=== PATIENT | female | born 1970 | race Caucasian/White ===

== ENCOUNTER 2022-06-22 11:08 | Inpatient (IN) ==
[2022-06-22] MEDS ORDERED: ALBUTEROL 0.083% NEBU SOLN 3 ML VIAL NEB STA (11:56)
--- NOTE | 2022-06-22 12:20 | Emergency Department Note ---
Impression & Plan Asthma exacerbation, Hypoxia, Shortness of breath, Leukocytosis ED Provider Note NAME: LUIS KAMINSKI AGE: 51 SEX: F : 1970 ARRIVES VIA: Walk-In INFORMANT: Patient ED PROVIDER(S): Edil Fam DO CHIEF COMPLAINT: shortness of breath HPI: Patient is a 51-year-old female who presents to the ER for cough, congestion, runny nose and a sore throat. This all started this past Saturday. She notes it has been getting gradually worse. She saw her PCP 2 days ago and was placed on steroids and she has been using her inhaler. She notes that these are improving. No fevers. No belly pain, nausea, vomiting, or diarrhea. No dysuria, urgency, or frequency. No other exacerbating remitting factors. PAST MEDICAL HISTORY:See Below PAST SURGICAL HISTORY:See Below FAMILY HISTORY:See Below SOCIAL HISTORY:See Below HOME MEDICATIONS:See Below ALLERGIES:See Below VITALS:See Below PHYSICAL EXAMINATION: GENERAL: Sitting up in bed, alert, mild distress, tachypneic with conversation EYE EXAM: normal conjunctiva. PERRL and EOM's grossly intact. OROPHARYNX: mucous membranes are moist NECK: supple, no nuchal rigidity, no adenopathy, non-tender LUNGS: Diffuse wheezing bilaterally. Normal chest wall mechanics HEART: no murmurs, S1 normal and S2 normal ABDOMEN: abdomen soft, non-tender, normo-active bowel sounds, no masses, no rebound or guarding. UPPER EXTREMITIES: upper extremities are grossly normal. LOWER EXTREMITIES: No pitting edema. Calves are equal bilateral NEURO EXAM: Normal sensorium, cranial nerves II-XII grossly intact, normal speech, no gross weakness of arms, no gross weakness of legs. MEDICAL DECISION MAKING: Patient is a 51-year-old female who presents to the ER seen and evaluated by her PCP and placed on steroids and inhalers for shortness of breath which has been worsening. IV established blood pristine. Labs show mild leukocytosis of 1 4,000. No significant anemia. BMP with mild hypokalemia 3.4. LFTs bilirubin and lipase was unremarkable. Troponin was negative. Influenza COVID and RSV was negative. Chest x-ray was clean. Patient was given initially an hour-long neb treatment with some mild improvement as well as steroids. She was still slightly hypoxic without moving around and did become dyspneic. She then given an additional hour-long neb treatment due to slight tachypnea. Discussed with Dr. Mala Farrar in regards to further evaluation work-up and management. External records were reviewed. Triage Nursing notes reviewed. Limited review of prior medical records performed Vital Signs: reviewed and remarkable for hypoxia Differential diagnosis: Differential diagnoses includes but is not limited to pneumonia, bronchitis, COPD/Asthma exacerbation, pneumothorax, pulmonary embolism, congestive heart failure, acute coronary syndrome ER treatment provided: See below Diagnostics interpreted by me include EKG and cardiac monitoring as listed below: -Cardiac Monitoring: An order was placed for continuous cardiac monitoring. The monitor shows a rate of 90 with sinus rhythm. -ECG: Sinus rhythm rate of 90 Normal axis No PVCs QTc 450 T wave inversions in septal leads -Laboratory studies:Interpreted by me as stated above in MDM and shown below. Imaging studies: Xrays: As interpreted by me: Portable AP upright 1 view per my read shows no focal infiltrate CTs show: none Consultation(s): Discussed with Mala Farrar for further evaluation treatment and management Procedures:none Critical Care: I have personally spent 31 minutes of critical care time in the direct management of this patient. This includes bedside care, interpretation of diagnostic studies, and testing, discussion with consultants, patient, and family members, and other required patient management activities. This 31 minutes is in excess of all separately billable procedures. Past Med/Surg History Medical History (Updated 06/22/22 @ 14:48 by Edil Fam DO) Asthma Hx of endometriosis Hx pulmonary embolism 04/2016 Pollen allergies Seasonal allergies Surgical History History of anesthesia problem per pt blood pressure drops and has voiding issues Hx of hernia repair Hx of laparoscopy x2 Hx of tonsillectomy Hx of tubal ligation Family History Father Family history of diabetes mellitus Social History Smoking Status: Current every day smoker Cigarettes Per Day: 5; Second Hand Exposure: Yes ( SMOKES); Hx Alcohol Use: No Hx Substance Use: No Preferred Language: Montserratian Communication Ability: Effective Beliefs That Will Affect Care: None Current Living Situation: Family Feels Safe at Home: Yes Assistive Devices: Nebulizer Allergies Allergies Allergy/AdvReac Type Severity Reaction Status Date / Time hydromorphone [From Dilaudid] AdvReac Severe Vomiting Verified 06/22/22 14:36 morphine AdvReac NAUSEA AND Verified 12/12/18 09:43 VOMITING Home Meds Home Medications Medication Instructions Recorded Confirmed albuterol sulfate 2.5 mg/3 mL 2.5 mg inhalation QID PRN 11/27/18 06/22/22 (0.083 %) solution for nebulization SHORTNESS OF BREATH/WHEEZING albuterol sulfate 90 mcg/actuation 1 puff inhalation Q6H PRN 11/27/18 06/22/22 aerosol inhaler (ProAir HFA) Shortness Of Breath cetirizine 10 mg tablet (Zyrtec) 10 mg PO QAM 11/27/18 06/22/22 fluticasone 250 mcg-salmeterol 50 1 inh inhalation BID 11/27/18 06/22/22 mcg/dose blistr powdr for inhalation (Advair Diskus) montelukast 10 mg tablet 10 mg PO PM 11/27/18 06/22/22 (Singulair) omeprazole 40 mg capsule,delayed 40 mg PO DAILY 06/22/22 06/22/22 release Results & Data (ED) Vital Signs Vital Signs - 24 hr 06/22/22 11:12 06/22/22 11:44 06/22/22 12:29 Temperature 36.4 C L Temperature Source Temporal Artery Scan Pulse Rate 96 H Pulse Rate [Apical] 92 H Pulse Rhythm [Apical] Pulse Strength [Apical] Respiratory Rate 20 20 20 Respiratory Effort / Characteristics Non-Labored Spontaneous Spontaneous Respiratory Depth Normal Respiratory Pattern Regular Blood Pressure 149/80 H Blood Pressure [Left Arm] Blood Pressure Mean 103 Blood Pressure Mean [Left Arm] Pulse Oximetry 97 99 96 Oxygen Delivery Method Room Air Room Air Sepsis Recent Fever Within 48 Hours No Sepsis New/Unexplained Change in Mental Status No Sepsis Action Taken by Nursing No Action Required 06/22/22 12:52 06/22/22 13:02 06/22/22 14:03 Temperature Temperature Source Pulse Rate Pulse Rate [Apical] 98 H 94 H Pulse Rhythm [Apical] Regular Regular Pulse Strength [Apical] Normal Normal Respiratory Rate 18 20 22 Respiratory Effort / Characteristics Non-Labored Spontaneous Respiratory Depth Normal Respiratory Pattern Regular Blood Pressure Blood Pressure [Left Arm] 106/78 131/73 Blood Pressure Mean Blood Pressure Mean [Left Arm] 87 92 Pulse Oximetry 100 100 88 L Oxygen Delivery Method Nebulizer Room Air Sepsis Recent Fever Within 48 Hours Sepsis New/Unexplained Change in Mental Status Sepsis Action Taken by Nursing 06/22/22 14:33 Temperature Temperature Source Pulse Rate Pulse Rate [Apical] 93 H Pulse Rhythm [Apical] Pulse Strength [Apical] Respiratory Rate 18 Respiratory Effort / Characteristics Non-Labored Spontaneous Respiratory Depth Respiratory Pattern Blood Pressure Blood Pressure [Left Arm] Blood Pressure Mean Blood Pressure Mean [Left Arm] Pulse Oximetry 94 Oxygen Delivery Method Room Air Sepsis Recent Fever Within 48 Hours Sepsis New/Unexplained Change in Mental Status Sepsis Action Taken by Nursing Laboratory Data 06/22/22 11:40 06/22/22 11:40 Lab Results 06/22/22 06/22/22 06/22/22 Range/Units 11:40 11:40 11:40 WBC 14.44 H (4.8-10.8) K/ul RBC 4.93 (4.20-5.40) M/uL Hgb 14.6 (12.0-16.0) g/dl Hct 42.7 (37.0-47.0) % MCV 86.6 (80.0-100.0) fL MCH 29.6 (25.0-34.0) pg MCHC 34.2 (32.0-36.0) g/dL RDW Std Deviation 44.5 (36.4-46.3) fL RDW Coeff of Manish 14.0 (11.5-14.5) % Plt Count 227 (130-400) K/uL MPV 11.2 (9.4-12.4) fL Immature Gran % (Auto) 0.4 % Neut % (Auto) 72.7 % Lymph % (Auto) 20.3 % [place] % (Auto) 5.8 % Eos % (Auto) 0.6 % Baso % (Auto) 0.2 % Neut # (Auto) 10.49 H (1.40-6.50) K/uL Lymph # (Auto) 2.93 (1.2-3.4) K/uL [place] # (Auto) 0.84 H (0.11-0.59) K/uL Eos # (Auto) 0.09 (0-0.50) K/uL Baso # (Auto) 0.03 (0-0.2) K/uL Immature Gran # (Auto) 0.06 (0.01-0.20) K/uL Sodium 142 (136-145) mmol/L Potassium 3.4 L (3.5-5.1) mmol/L Chloride 107 (98-107) mmol/L Carbon Dioxide 27 (21-32) mmol/L Anion Gap 8 (3-11) BUN 14 (6-23) mg/dl Creatinine 0.83 (0.6-1.2) mg/dl Est Cr Clr Drug Dosing 77.1 ml/min Est GFR ( Amer) 96.0 ml/min Est GFR (Non-Af Amer) 82.8 ml/min BUN/Creatinine Ratio 16.9 (10-20) Glucose 79 (70-99(Fasting)) mg/dl Calcium 9.3 (8.5-10.1) mg/dl Total Bilirubin 0.4 (0.2-1.0) mg/dl AST 15 (13-39) U/L ALT 15 (7-52) U/L Alkaline Phosphatase 90 (34-104) U/L Troponin I High Sens 4.5 (0-14) pg/ml Total Protein 7.6 (6.0-8.3) gm/dl Albumin 4.3 (3.4-5.0) gm/dl Globulin 3.3 (2.5-4.0) gm/dl Albumin/Globulin Ratio 1.3 (0.9-2) Lipase 17 (11-82) U/L SARS-CoV-2 (PCR) NEGATIVE (Negative) Influenza Type A (PCR) Negative (Neg) Influenza Type B (PCR) Negative (Neg) RSV (RT-PCR) Negative (Neg) Administered Medications Discontinued Medications Albuterol (Albuterol 0.083% Nebu Soln 3 Ml Vial) 10 mg NEB NOW STA; Protocol Stop: 06/22/22 11:57 Last Admin: 06/22/22 12:27 Dose: 10 mg Documented By: ROBERT Albuterol (Albut/Ipratrop 3mg/0.5mg Neb 3 Ml Vial) 12 ml NEB ONE ONE; Protocol Stop: 06/22/22 14:06 Last Admin: 06/22/22 14:32 Dose: 12 ml Documented By: ROBERT Methylprednisolone (Methylprednisolone 40 Mg/Ml Vial) 40 mg IV NOW STA Stop: 06/22/22 11:57 Last Admin: 06/22/22 12:18 Dose: 40 mg Documented By: BEZ Imaging Data Radiologist's Impression: Chest X-Ray 06/22/22 11:28 XR chest 1V portable HISTORY: Chest pain, nonspecific COMPARISON: Chest 11/21/2018. FINDINGS: The lungs are clear. Cardiac silhouette is normal in size. No pleural effusions. No pneumothorax. Supraspinatus calcific tendinitis within the left shoulder. IMPRESSION: No acute process. ACT 112: Negative or not required by law. Electronically signed by: Jesse Franco M.D. 06/22/2022 12:41 PM Discharge Plan Visit Data Chief Complaint: Cough Stated Complaint: CHEST BURNING ED Provider: Edil Fam Discharge Problem: Asthma exacerbation, Hypoxia, Shortness of breath, Leukocytosis Forms Stand Alone Forms: My [employer] Prescriptions Prescriptions: No Action fluticasone propion-salmeterol [Advair Diskus] 250-50 mcg/dose Blister With Device 1 inh INHALATION BID Rx Instructions: HAS BEEN TEMPORIARLY UPPED TO 2 PUFFS D/T WEATHER; NORMAL DOSE 1 PUFF albuterol sulfate 2.5 mg /3 mL (0.083 %) Solution For Nebulization 2.5 mg INHALATION QID PRN (Reason: SHORTNESS OF BREATH/WHEEZING) cetirizine [Zyrtec] 10 mg Tablet 10 mg PO QAM montelukast [Singulair] 10 mg Tablet 10 mg PO PM albuterol sulfate [ProAir HFA] 90 mcg/actuation Hfa Aerosol Inhaler 1 puff INHALATION Q6H PRN (Reason: Shortness Of Breath) omeprazole 40 mg Capsule,Delayed Release(Dr/Ec) 40 mg PO DAILY Referrals Referrals: PCP,NO [Primary Care Provider] -
[2022-06-22 12:28] LABS: Albumin Globulin Ratio 1.3 (0.9-2); Albumin Level 4.3 gm/dl (3.4-5.0); BUN Creatinine Ratio 16.9 (10-20); Bilirubin,Total 0.4 mg/dl (0.2-1.0); Calcium 9.3 mg/dl (8.5-10.1); Creatinine Clr Calc Pharmacy 77.1 ml/min; Est GFR (Non-African American) 82.8 ml/min; Globulin 3.3 gm/dl (2.5-4.0); Potassium 3.4 mmol/L (3.5-5.1); Total Protein 7.6 gm/dl (6.0-8.3)
[2022-06-22 12:34] LABS: Basophils # (auto) 0.03 K/uL (0-0.2); Basophils % (auto) 0.2 %; Eosinophils # (auto) 0.09 K/uL (0-0.50); Eosinophils % (auto) 0.6 %; Hematocrit (blood only) 42.7 % (37.0-47.0); Hemoglobin 14.6 g/dl (12.0-16.0); Immature Granulocytes # (auto) 0.06 K/uL (0.01-0.20); Immature Granulocytes % (auto) 0.4 %; Lymphocytes # (auto) 2.93 K/uL (1.2-3.4); Lymphocytes % (auto) 20.3 %; Mean Corpuscular Hemoglobin 29.6 pg (25.0-34.0); Mean Corpuscular Hgb Conc 34.2 g/dL (32.0-36.0); Mean Corpuscular Volume 86.6 fL (80.0-100.0); Mean Platelet Volume 11.2 fL (9.4-12.4); Monocytes # (auto) 0.84 K/uL (0.11-0.59); Monocytes % (auto) 5.8 %; Neutrophils # (auto) 10.49 K/uL (1.40-6.50); Neutrophils % (auto) 72.7 %; Platelet Count 227 K/uL (130-400); RDW Standard Deviation 44.5 fL (36.4-46.3); Red Blood Count 4.93 M/uL (4.20-5.40); Troponin I High Sensitivity 4.5 pg/ml (0-14); White Blood Count 14.44 K/ul (4.8-10.8)
[2022-06-22 12:37] LABS: Influenza A virus by PCR Negative (Neg); Influenza B virus by PCR Negative (Neg); RSV by PCR Negative (Neg); SARS CoV2 RNA(COVID-19) Ceph NEGATIVE (Negative)
--- NOTE | 2022-06-22 12:42 | XRay Report ---
XR chest 1V portable HISTORY: Chest pain, nonspecific COMPARISON: Chest 11/21/2018. FINDINGS: The lungs are clear. Cardiac silhouette is normal in size. No pleural effusions. No pneumot horax. Supraspinatus calcific tendinitis within the left shoulder. IMPRESSION: No acute process. ACT 112: Negative or not required by law. Electronically signed by: Jesse Franco M.D. 06/22/2022 12:41 PM
[2022-06-22] MEDS ORDERED: ALBUT/IPRATROP 3MG/0.5MG NEB 3 ML VIAL NEB ONE (14:05)
--- NOTE | 2022-06-22 14:43 | History & Physical Report ---
Date of Service June 22, 2022 Assessment & Plan (1) Asthma exacerbation: Plan: h/o asthma and active smoking, presents with exacerbation possibly related to a virus. Nasal swab for flu/covid are clear. CXR is clear. She became hypoxic with ambulation in the ER after initial treatment. Will continue steroids and albuterol via nebulizer during admission. Cont Advair and Singulair per home regimen. (2) Hypoxia: Plan: Hypoxia with walking 2/2 #1. May consider 2 step prior to discharge. (3) Seasonal allergies: Plan: Chronic, stable. Cont Zyrtec per home regimen (4) Hx pulmonary embolism: Plan: h/o PE in 2017-no clear etiology per patient. DVT prophylaxis with Lovenox ordered. (5) Tobacco use: Plan: Smoking cessation advised and she was counseled on this. Verbalized underst anding-contemplative phase. DVT proph: Lovenox Full Code Dispo-to telemetry. Patient states that she would like to be discharged tomorrow so she may attend her granddaughter's gymnastics event. AT least 75 minutes was spent reviewing outpatient records, discussing case with staff, reviewing diagnostics, examining patient and interviewing she and her and reviewing and documenting plan with patient. DO [facility] History of Present Illness Chief Complaint: cough Primary Care Provider: NO PCP 51 yo F with h/o asthma presents with an acute exacerbation. She reports symptoms of cough and SOB starting on Saturday this week. She saw her PCP on and was prescribed prednisone and a zpack but her breathing and cough was worse despite therapy. In the ER today she was not moving air well, per ER doctor. She has received solumedrol 40mg IV and two sequential 1hr nebulizer treatments. She was counseled extensively on the importance of smoking cessation and states that she is now down to 5 cigarettes/day. She denies any fevers or chills. She has been eating but hasn't had anything to eat yet today. 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 She reports being hospitalized for asthma once many years ago but has never been intubated for this. Allergies Allergy/AdvReac Type Severity Reaction Status Date / Time hydromorphone [From Dilaudid] AdvReac Severe Vomiting Verified 06/22/22 14:36 morphine AdvReac NAUSEA AND Verified 12/12/18 09:43 VOMITING Home Medications Medication Instructions Recorded Confirmed Type albuterol sulfate 2.5 mg/3 mL 2.5 mg inhalation QID PRN 11/27/18 06/22/22 History (0.083 %) solution for nebulization SHORTNESS OF BREATH/WHEEZING albuterol sulfate 90 mcg/actuation 1 puff inhalation Q6H PRN 11/27/18 06/22/22 History aerosol inhaler (ProAir HFA) Shortness Of Breath cetirizine 10 mg tablet (Zyrtec) 10 mg PO QAM 11/27/18 06/22/22 History fluticasone 250 mcg-salmeterol 50 1 inh inhalation BID 11/27/18 06/22/22 History mcg/dose blistr powdr for inhalation (Advair Diskus) montelukast 10 mg tablet 10 mg PO PM 11/27/18 06/22/22 History (Singulair) omeprazole 40 mg capsule,delayed 40 mg PO DAILY 06/22/22 06/22/22 History release Past Med/Surg History Medical History Asthma Hx of endometriosis Hx pulmonary embolism 04/2016 Pollen allergies Seasonal allergies Surgical History History of anesthesia problem per pt blood pressure drops and has voiding issues Hx of hernia repair Hx of laparoscopy x2 Hx of tonsillectomy Hx of tubal ligation Family History Father Family history of diabetes mellitus Social History Smoking Status: Current every day smoker Cigarettes Per Day: 5; Second Hand Exposure: Yes ( SMOKES); Hx Alcohol Use: No Hx Substance Use: No Preferred Language: Italian Communication Ability: Effective Beliefs That Will Affect Care: None Current Living Situation: Family Feels Safe at Home: Yes Assistive Devices: Nebulizer Review of Systems Review of Systems: All systems were reviewed and negative except as indicated on HPI above. Physical Exam Physical Exam: CONSTITUTIONAL: WNWD, vitals as above, generally well-appearing, NAD EYES: EOMI bilaterally, PERRL, normal conjunctivae, no scleral icterus ENT: external ear and nose normal, oal mucosa moist. NECK: trachea midline RESPIRATORY: clear to auscultation bilaterally, no crackles, rales or wheezes, normal respiratory effort CARDIOVASCULAR: regular rate and rhythm, S1 and 2 heard without murmurs, gallops or rubs, no JVD, no peripheral edema CHEST: inspection of chest was normal GASTROINTESTINAL: soft, nontender, ND, no guarding MUSCULOSKELETAL: strength 5/5 throughout, head is normocephalic and atraumatic, neck supple, normal palpation of chest wall without tenderness SKIN: warm and dry NEUROLOGIC: CN 2-12 grossly intact, no sensory deficit, normal cognition, normal speech, no tremor PSYCHIATRIC: alert cooperative and oriented to person, place and time. Euthymic mood, makes good eye contact, language grossly intact, recent and remote memory grossly intact. Results & Data Results & Data ([facility]) Vital Signs (Past 12 Hours) Vital Signs Temp Pulse Pulse Resp BP BP Pulse Ox 06/22/22 14:33 93 H 18 94 06/22/22 14:03 22 88 L 06/22/22 13:02 94 H 20 131/73 100 06/22/22 12:52 98 H 18 106/78 100 06/22/22 12:29 92 H 20 96 06/22/22 11:44 20 99 06/22/22 11:12 36.4 C L 96 H 20 149/80 H 97 O2 Del Method 06/22/22 14:33 Room Air 06/22/22 14:03 Room Air 06/22/22 13:02 Nebulizer 06/22/22 12:52 06/22/22 12:29 Room Air 06/22/22 11:44 06/22/22 11:12 Room Air Laboratory Results Short CBC 06/22/22 Range/Units 11:40 WBC 14.44 H (4.8-10.8) K/ul Hgb 14.6 (12.0-16.0) g/dl Hct 42.7 (37.0-47.0) % Plt Count 227 (130-400) K/uL BMP 06/22/22 11:40 Sodium 142 Potassium 3.4 L Chloride 107 Carbon Dioxide 27 BUN 14 Creatinine 0.83 Glucose 79 Calcium 9.3 Liver Function 06/22/22 Range/Units 11:40 Total Bilirubin 0.4 (0.2-1.0) mg/dl AST 15 (13-39) U/L ALT 15 (7-52) U/L Alkaline Phosphatase 90 (34-104) U/L Albumin 4.3 (3.4-5.0) gm/dl Diagnostic Findings Chest X-Ray 06/22/22 11:28 XR chest 1V portable HISTORY: Chest pain, nonspecific COMPARISON: Chest 11/21/2018. FINDINGS: The lungs are clear. Cardiac silhouette is normal in size. No pleural effusions. No pneumothorax. Supraspinatus calcific tendinitis within the left shoulder. IMPRESSION: No acute process. ACT 112: Negative or not required by law. Electronically signed by: Jesse Franco M.D. 06/22/2022 12:41 PM
--- NOTE | 2022-06-22 17:25 | Electrocardiogram Report ---
Test Reason : Blood Pressure : / mmHG Vent. Rate : 090 BPM Atrial Rate : 090 BPM P-R Int : 118 ms QRS Dur : 096 ms QT Int : 368 ms P-R-T Axes : 071 017 039 degrees QTc Int : 450 ms Normal sinus rhythm with sinus arrhythmia Incomplete right bundle branch block Borderline ECG No previous ECGs available Confirmed by Warren Wright ([id number]) on 06/22/2022 5:25:11 PM Referred By: REFERRED SELF Confirmed By:Warren Wright
[2022-06-22] MEDS ORDERED: POLYETHYLENE (MIRALAX) 17 GM PACK PO PRN (18:19)
[2022-06-22] MEDS ORDERED: ACETAMINOPHEN 325 MG TAB PO PRN (18:19)
[2022-06-22] MEDS ORDERED: ONDANSETRON INJ 2 MG/ML 2 ML VIAL IV PRN (18:19)
[2022-06-22] MEDS ORDERED: MAGNESIUM HYDROXIDE SUSP 30 ML UDC PO PRN (18:19)
[2022-06-22] MEDS ORDERED: ENOXAPARIN INJ 40 MG/0.4 ML SYR SQ SCH (19:00)
[2022-06-22] MEDS: ALBUTEROL 0.083% NEBU SOLN 3 ML VIAL NEB SCH ×2 (19:24→19:27)
[2022-06-22] MEDS ORDERED: CETIRIZINE HCL 10 MG TABLET PO SCH (21:00)
[2022-06-22] MEDS ORDERED: MONTELUKAST SODIUM 10 MG TABLET PO SCH (21:00)
[2022-06-22] MEDS: methylPREDNISolone 40 MG in SYRINGE 0 ML IV SCH (22:39)
[2022-06-23] MEDS: methylPREDNISolone 40 MG in SYRINGE 0 ML IV SCH (04:13)
[2022-06-23] MEDS: ALBUTEROL 0.083% NEBU SOLN 3 ML VIAL NEB SCH (05:33)
[2022-06-23] MEDS ORDERED: ALUMINUM/MAGNESIUM SUSP 30 ML UDC PO PRN (05:58)
[2022-06-23 07:24] LABS: Hematocrit (blood only) 39.7 % (37.0-47.0); Hemoglobin 13.4 g/dl (12.0-16.0); Mean Corpuscular Hemoglobin 29.4 pg (25.0-34.0); Mean Corpuscular Hgb Conc 33.8 g/dL (32.0-36.0); Mean Corpuscular Volume 87.1 fL (80.0-100.0); Mean Platelet Volume 11.2 fL (9.4-12.4); Platelet Count 219 K/uL (130-400); RDW Coefficient of Variation 14.1 % (11.5-14.5); RDW Standard Deviation 44.9 fL (36.4-46.3); Red Blood Count 4.56 M/uL (4.20-5.40); White Blood Count 15.93 K/ul (4.8-10.8)
[2022-06-23 08:22] LABS: BUN Creatinine Ratio 22.5 (10-20); Calcium 9.3 mg/dl (8.5-10.1); Creatinine Clr Calc Pharmacy 73.5 ml/min; Est GFR (African American) 88.2 ml/min; Est GFR (Non-African American) 76.1 ml/min; Potassium 4.2 mmol/L (3.5-5.1)
[2022-06-23] MEDS ORDERED: FLUTICASONE/VILANTEROL 200/25MCG 14 PUFFS/INHALER INH SCH (09:00)
[2022-06-23] MEDS ORDERED: PANTOprazole 40 MG TAB PO SCH (09:00)
--- NOTE | 2022-06-23 10:34 | Discharge Summary ---
Discharge Summary Date of Service June 23, 2022 Notes For Next Care Provider Patient was admitted for asthma exacerbation and given IV steroids and nebulized bronchodilator therapy. She was continued on prednisone for short course at home postdischarge. She will need a 1 week follow-up to ensure her breathing is stable. Please continue to work with her for goal of total smoking cessation. Medication Changes From Visit Prednisone 40 mg p.o. daily x5 days. Admission HPI Per Admitting Provider 51 yo F with h/o asthma presents with an acute exacerbation. She reports symptoms of cough and SOB starting on Saturday this week. She saw her PCP on and was prescribed prednisone and a zpack but her breathing and cough was worse despite therapy. In the ER today she was not moving air well, per ER doctor. She has received solumedrol 40mg IV and two sequential 1hr nebulizer treatments. She was counseled extensively on the importance of smoking cessation and states that she is now down to 5 cigarettes/day. She denies any fevers or chills. She has been eating but hasn't had anything to eat yet today. 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 She reports being hospitalized for asthma once many years ago but has never been intubated for this. Admission Exam Per Admitting Provider CONSTITUTIONAL: WNWD, vitals as above, generally well-appearing, NAD EYES: EOMI bilaterally, PERRL, normal conjunctivae, no scleral icterus ENT: external ear and nose normal, oal mucosa moist. NECK: trachea midline RESPIRATORY: clear to auscultation bilaterally, no crackles, rales or wheezes, normal respiratory effort CARDIOVASCULAR: regular rate and rhythm, S1 and 2 heard without murmurs, gallops or rubs, no JVD, no peripheral edema CHEST: inspection of chest was normal GASTROINTESTINAL: soft, nontender, ND, no guarding MUSCULOSKELETAL: strength 5/5 throughout, head is normocephalic and atraumatic, neck supple, normal palpation of chest wall without tenderness SKIN: warm and dry NEUROLOGIC: CN 2-12 grossly intact, no sensory deficit, normal cognition, normal speech, no tremor PSYCHIATRIC: alert cooperative and oriented to person, place and time. Euthymic mood, makes good eye contact, language grossly intact, recent and remote memory grossly intact. Principal Dx & Hospital Course #1 = Principal Diagnosis (1) Asthma exacerbation: h/o asthma and active smoking, presents with exacerbation possibly related to a virus as other members of family were ill. Nasal swab for flu/covid were clear. CXR was clear. She became hypoxic with ambulation in the ER after initial treatment and was admitted to medicine. She was continued on her home Advair and singulair and was treated with intravenous steroids and scheduled bronchodilator therapy. She was able to ambulate without the need for oxygen supplementation the next day and was feeling overall improved. She was sent home in stable condition with a goal for strict smoking cessation, and was given a 5 day course of prednisone 40mg daily. (2) Hypoxia: resolved at time of discharge. Two step test passed. (3) Seasonal allergies: Chronic, stable. Cont Zyrtec per home regimen (4) Hx pulmonary embolism: h/o PE in 2017-no clear etiology per patient. DVT prophylaxis with Lovenox ordered during her stay. (5) Tobacco use: Smoking cessation advised and she was counseled on this. Verbalized understanding-contemplative phase. Discharge Exam CONSTITUTIONAL: WNWD, vitals as above, generally well-appearing, NAD EYES: normal conjunctivae, no scleral icterus ENT: external ear and nose normal, oral mucosa moist. NECK: trachea midline RESPIRATORY: clear to auscultation bilaterally, no crackles, rales or wheezes, normal respiratory effort CARDIOVASCULAR: regular rate and rhythm, S1 and 2 heard without murmurs, gallops or rubs, no JVD, no peripheral edema CHEST: inspection of chest was normal GASTROINTESTINAL: soft, nontender, ND, no guarding MUSCULOSKELETAL: strength 5/5 throughout, head is normocephalic and atraumatic, neck supple, normal palpation of chest wall without tenderness SKIN: warm and dry NEUROLOGIC: CN 2-12 grossly intact, no sensory deficit, normal cognition, normal speech, no tremor PSYCHIATRIC: alert cooperative and oriented to person, place and time. Euthymic mood, makes good eye contact, language grossly intact, recent and remote memory grossly intact. Updated Medication List Medication Instructions Recorded Confirmed Type albuterol sulfate 2.5 mg/3 mL 2.5 mg inhalation QID PRN 11/27/18 06/22/22 History (0.083 %) solution for nebulization SHORTNESS OF BREATH/WHEEZING albuterol sulfate 90 mcg/actuation 1 puff inhalation Q6H PRN 11/27/18 06/22/22 History aerosol inhaler (ProAir HFA) Shortness Of Breath cetirizine 10 mg tablet (Zyrtec) 10 mg PO QAM 11/27/18 06/22/22 History fluticasone 250 mcg-salmeterol 50 1 inh inhalation BID 11/27/18 06/22/22 History mcg/dose blistr powdr for inhalation (Advair Diskus) montelukast 10 mg tablet 10 mg PO PM 11/27/18 06/22/22 History (Singulair) azithromycin 250 mg tablet 250 mg PO DAILY 06/22/22 06/22/22 History omeprazole 40 mg capsule,delayed 40 mg PO DAILY 06/22/22 06/22/22 History release prednisone 20 mg tablet 40 mg PO DAILY #10 tabs 06/23/22 Rx Hospital Stay Data Consultations 06/22/22 14:06 ED Decision to Admit Stat Pending Results Patient Have Any Pending Studies at Discharge: No Discharge Instructions Given to Patient (Per Discharging Provider) Please take all medications as instructed on discharge list below. You have been given an additional 5 days of prednisone 40 mg daily. Please follow-up with your primary care doctor within 1 week of discharge from the hospital to ensure you are still doing well on this course of therapy. Continue using your nebulizer therapy at home or inhaler therapy as needed for intermittent shortness of breath or wheezing. Complete smoking cessation is strongly advised. It was a pleasure taking care of you! Please call if you have any questions or problems. You can reach a [facility] hospitalist on duty at [facility] 24 hours a day by calling [phone]. Take care of yourself. Mala Farrar, [facility] Hospitalist Total Time Total Time Spent Total Time Spent (In Minutes): 60
== END 2022-06-23 12:24 | disposition home or self-care (01) | DRG 203 ==
LOC: ED 11:08 → 2N 14:47